=== PATIENT | female | born 1985 | race Caucasian/White ===

== ENCOUNTER 2020-01-05 15:50 | Emergency (ER) | payer SELFPAY ==
[2020-01-05 15:57] VITALS: BP 157/99; PULSE 118; RESP 18; TEMP 36.7; O2SAT 98; BMI 27.4
--- NOTE | 2020-01-05 16:02 | ED_ITS ---
HPI - Extremity Problem General: Chief complaint: Extremity Injury, Lower Stated complaint: ankle pain/swelling Time Seen by Provider: 01/05/20 15:54 History of Present Illness: HPI Narrative: 34-year-old female presents complaining of left ankle pain. She stepped in a hole yesterday while mowing She has lateral ankle swelling has been partial weightbearing does not seem to be getting any better she is taking some [id number] medications with no relief. No other injuries. MD Complaint: joint swelling and joint pain Onset (ago): minute(s) Pain Consistency: constant Location: left Quality: aching Radiation: none Relieving factors: elevation and rest Exacerbating factors: weight bearing and walking Associated symptoms: Deny arthralgias, chest pain, fever(s), myalgias or short of breath Review of Systems Const: Denies: fever(s) ENMT: Denies: throat pain, ear or mastoid pain, nasal discharge or nasal congestion Card: Denies: chest pain Resp: Denies: dyspnea, productive cough or non-productive cough GI: Denies: abdominal pain, nausea, vomiting, hematemesis, coffee ground emesis, diarrhea, constipation, bloating, hematochezia or melena Physical Exam Const: COMMON NORMALS: no acute distress GENERAL APPEARANCE: cooperative and comfortable ORIENTATION/CONSCIOUSNESS: Yes awake, Yes oriented to person, Yes oriented to place and Yes oriented to time HENMT: COMMON NORMALS: normocephalic, atraumatic and hearing grossly normal bilaterally HEAD & SCALP: normocephalic and atraumatic Neck/C-Spine: COMMON NORMALS: no JVD Resp: COMMON NORMALS: normal respiratory effort, No retractions, No use of accessory muscles and clear to auscultation bilaterally AUSCULTATION: clear to auscultation bilaterally Cardio: COMMON NORMALS: no JVD, regular rate, regular rhythm and No murmurs present (Cardio) RATE: regular rate RHYTHM: regular rhythm GI: COMMON NORMALS: Soft to palpation and No hepatosplenomegaly present AUSCULTATION: Yes normoactive bowel sounds PALPATION: Yes Soft to palpation, No Tenderness to palpation present (GI), No Guarding due to palpation present (GI) and Yes No hepatosplenomegaly present Extremity: NARRATIVE EXTREMITY EXAM: Swelling over the lateral malleolus dorsalis pedis posterior tibialis pulses are normal plantar and dorsiflexion normal Neuro: SENSORIUM/ORIENTATION: Yes oriented to person, Yes oriented to place and Yes oriented to time Skin: COMMON NORMALS: no rashes or lesions noted GENERAL SKIN EXAM: no rashes or lesions noted Course Vital Signs: Vital signs: Vital Signs Temperature 98.0 F 01/05/20 15:57 Pulse Rate 118 H 01/05/20 15:57 Respiratory Rate 18 01/05/20 15:57 Blood Pressure 157/99 01/05/20 15:57 Pulse Oximetry 98 01/05/20 15:57 MDM - Extremity (Nontraumatic) MDM Narrative: Medical decision making narrative: No acute fractures on x-ray. Rest ice compression elevation anti-inflammatories as needed. Weightbearing as tolerated Discharge Plan Discharge Patient Disposition: Home Clinical Impression: Ankle sprain and strain Condition: Stable Prescriptions: New diclofenac sodium 75 mg tablet,delayed release (DR/EC) 75 mg PO Q12H PRN (Reason: pain) Qty: 20 RF: 0 Discontinued ibuprofen 200 mg Tablet 400 - 600 mg PO Q6H PRN (Reason: Pain) RF: 0 Discharge Orders: Discharge Order (Routine); Ordered 01/05/20 Ordered By: Kamran Silverio Activity Restrictions/Additional Instructions: If symptoms persist follow-up with your primary care physician weightbearing as tolerated rest ice compression and elevation you can use the anti-inflammatory prescribed for you here and instead of ibuprofen. Discharge Date/Time: 01/05/20 17:00 Coding Level of Care Code ED [employer] for Fransisco Bedoya Exam Detailed
--- NOTE | 2020-01-05 16:09 | XRR_ITS ---
PROCEDURE INFORMATION: Exam: XR Left Ankle Exam date and time: 01/05/2020 4:37 PM Age: 34 years old Clinical indication: Injury or trauma; Injury history: Stepped in hole; Initial encounter; Sprain or strain; Ankle; Left; Injury date: 01/03/20; Additional info: Pain and swelling TECHNIQUE: Imaging protocol: XR Left ankle. Views: 3 or more views. COMPARISON: No relevant prior studies available. FINDINGS: Bones/joints: There is no evidence for acute fracture or malalignment. Soft tissues: Normal. XR/XR ankle LT min 3V* [id number] IMPRESSION: No acute findings.
== END 2020-01-05 17:00 | disposition home or self-care (01) ==
PROVIDERS: Emergency Provider Family Medicine
DX: S93.402A Sprain of unspecified ligament of left ankle, initial encounter (principal); S96.912A Strain of unspecified muscle and tendon at ankle and foot level, left foot, initial encounter; X50.1XXA Overexertion from prolonged static or awkward postures, initial encounter
CPT/HCPCS: 12345; 73610; 99281; 99282

== ENCOUNTER → 2023-01-14 08:56 | Outpatient (BNVA) | payer SELFPAY | PROVIDERS: Referring Provider Advanced Practice Midwife; Visit Provider Obstetrics & Gynecology | DX: R30.0 Dysuria (principal) | CPT/HCPCS: 81000 ==

== ENCOUNTER → 2023-01-23 08:18 | Outpatient (BNVA) | payer SELFPAY | PROVIDERS: Visit Provider Obstetrics & Gynecology | DX: R10.2 Pelvic and perineal pain (principal) | CPT/HCPCS: 76830 ==

== ENCOUNTER → 2023-01-29 08:17 | Outpatient (BNVA) | payer SELFPAY | PROVIDERS: Visit Provider Obstetrics & Gynecology | DX: Z01.818 Encounter for other preprocedural examination (principal); Z12.4 Encounter for screening for malignant neoplasm of cervix | CPT/HCPCS: 81025; 87624 ==

== ENCOUNTER 2024-01-15 14:44 | Outpatient (CLI) | payer OTHER, SELFPAY ==
--- NOTE | 2024-01-15 14:50 | MM_ITS ---
WS: [id number] BILATERAL 3D TOMOSYNTHESIS DIGITAL SCREENING MAMMOGRAPHY WITH CAD CLINICAL INFORMATION: SCREENING HISTORY: Screening mammogram. No current complaints. COMPARISON: Baseline TECHNIQUE: Bilateral CC and MLO views. FINDINGS: Scattered fibroglandular densities bilaterally. No suspicious focal mass, asymmetry, calcifications, or architectural distortion. No evidence of malignancy. MM/MM scr BI tomosynthesis [id number] IMPRESSION: DENSITY: There are scattered areas of fibroglandular density. BI-RADS: 2 - Benign. FOLLOW UP: 1 Year Follow-up Recommend return to annual screening mammography.
== END 2024-01-15 14:45 | disposition home or self-care (01) ==
LOC: RAD 14:46
PROVIDERS: Visit Provider Advanced Practice Midwife
DX: Z12.31 Encounter for screening mammogram for malignant neoplasm of breast (principal); R92.323 Mammographic fibroglandular density, bilateral breasts
CPT/HCPCS: 77063; 77067

== ENCOUNTER 2025-01-24 08:22 | Outpatient (CLI) | payer OTHER, SELFPAY ==
--- NOTE | 2025-01-24 08:26 | MM_ITS ---
WS: [id number] BILATERAL SCREENING DIGITAL TOMOSYNTHESIS MAMMOGRAM WITH CAD HISTORY: SCREENING COMPARISON: 01/15/2024 Bilateral CC and MLO views with tomosynthesis and synthetic mammography submitted. Computer aided detection analyzed. Breast composition: There are scattered areas of fibroglandular density. No suspicious masses, microcalcifications or architectural distortion. MM/MM scr BI tomosynthesis [id number] IMPRESSION: BI-RADS: 1 - Negative. FOLLOW UP: 1 Year Follow-up
== END 2025-01-24 08:23 | disposition home or self-care (01) ==
LOC: RAD 08:23
PROVIDERS: Visit Provider Advanced Practice Midwife
DX: Z12.31 Encounter for screening mammogram for malignant neoplasm of breast (principal); R92.323 Mammographic fibroglandular density, bilateral breasts
CPT/HCPCS: 77063; 77067